=== PATIENT | female | born 1960 | race Hispanic/Latino ===

== ENCOUNTER 2017-04-21 16:04 | Emergency (ER) | payer SELFPAY ==
[2017-04-21] MEDS ORDERED: DEXAMETHASONE SOD PHOSPHATE 10MG/ML 1ML VIAL ONE (16:36)
[2017-04-21] MEDS ORDERED: DIPHENHYDRAMINE HCL 25 MG CAPSULE ONE (16:37)
== END 2017-04-21 18:08 | disposition home or self-care (01) ==
LOC: EDH 16:04
DX: L24.9 Irritant contact dermatitis, unspecified cause (principal); Z72.0 Tobacco use
CPT/HCPCS: 96372; 99283; J1100; Q0163

== ENCOUNTER 2017-04-29 14:39 | Emergency (ER) | payer SELFPAY | END 2017-04-29 15:42 | disposition home or self-care (01) | LOC: EDH 14:39 | DX: B86 Scabies (principal); Z72.0 Tobacco use | CPT/HCPCS: 99282 ==